=== PATIENT | male | born 1970 ===

== ENCOUNTER 2016-10-26 13:00 | Emergency (ER) | payer OTHER ==
[2016-10-26 15:46] LABS: Basophils % (Auto) 0.5 % (0.0-1.8); Eosinophils % (Auto) 0.3 % (0.0-4.3); Hematocrit 45.5 % (35.5-45.6); Mean Corpuscular HGB Conc 33 % (32-34); Mean Corpuscular Hemoglobin 29 pg (28-32); Mean Corpuscular Volume 88 fl (84-94); Platelet Count 235 K/mm3 (140-440); Red Blood Count 5.18 M/mm3 (3.65-5.03); Red Cell Distribution Width 14.1 % (13.2-15.2); White Blood Count 9.4 K/mm3 (4.5-11.0)
--- NOTE | 2016-10-26 15:46 | Emergency Department Report ---
Entered by NYA LEWIS, acting as scribe for MAY TEAGUE PRESS PULLER. Stated Complaint: PSYCH EVAL Time Seen by Provider: 10/26/16 15:02 - HPI History of Present Illness: 46 y/o male, PMHx of SI, depression and glaucoma, c/o SI with no plan occurring today. Associated substance abuse but denies weight loss. Patient states he recently broke up with his girlfriend. - ROS Review of Systems: +SI, but no plan +substance abuse- pt reports using cocaine and marijuana x 3 days - Exam Vital Signs: Vital Signs 10/26/16 15:06 Temperature 98.2 F Pulse Rate 74 Respiratory 17 Rate Blood Pressure 140/89 O2 Sat by Pulse 100 Oximetry Physical Exam: GENERAL: The patient is a well-developed, well-nourished, in no apparent distress. Patient is alert and oriented x3. Psych: flat affect MSE screening note: Focused history and physical exam performed. Due to findings the following was ordered: labs ED Disposition for MSE Condition: Stable This documentation as recorded by the scribe,NYA LEWIS,accurately reflects the service I personally performed and the decisions made by me,MAY TEAGUE, PRESS PULLER.
[2016-10-26 16:08] LABS: Alanine Aminotransferase 49 units/L (7-56); Albumin 4.4 g/dL (3.9-5); Albumin/Globulin Ratio 1.6 %; Alkaline Phosphatase 58 units/L (35-129); Anion Gap 18 mmol/L; BUN/Creatinine Ratio 19.09; Blood Urea Nitrogen 21 mg/dL (9-20); Calcium 9.2 mg/dL (8.4-10.2); Carbon Dioxide 29 mmol/L (22-30); Chloride 96.5 mmol/L (98-107); Glucose 85 mg/dL (75-100); Sodium 139 mmol/L (137-145); Total Protein 7.1 g/dL (6.3-8.2)
[2016-10-26 16:17] LABS: Urine Drugs of Abuse Note Disclamer
[2016-10-26 16:29] LABS: Bilirubin,Urine NEG (Negative); Blood,Urine NEG (Negative); Ketones,Urine TR mg/dL (Negative); Leukocyte Esterase,Urine NEG (Negative); Mucus,Urine 3+ /HPF; Nitrite,Urine NEG (Negative); Protein,Urine <15 mg/dL mg/dL (Negative); WBC,Urine < 1.0 /HPF (0.0-6.0)
--- NOTE | 2016-10-26 17:21 | Emergency Department Report ---
ED Psych HPI - General Chief Complaint: Psych Stated Complaint: PSYCH EVAL Time Seen by Provider: 10/26/16 15:02 Source: patient, EMS (ems notes not available at time of chart dictation), RN notes reviewed Mode of arrival: Ambulatory Limitations: No Limitations - History of Present Illness Initial Comments: This is a 46-year-old male. He is previously unknown to me. The patient has a past medical history of bipolar and schizophrenia. He is brought to the hospital by EMS for psychiatric evaluation. The patient has apparently relapsed on marijuana and cocaine, and is hearing voices and feeling suicidal. He is not homicidal, he does not have access to guns or firearms, and he has not tried to overdose. The patient is unable to describe exacerbating or relieving factors. The patient indicates no headache, neck pain, chest pain, abdominal pain, shortness of breath, and he denies irritative and obstructive urinary symptoms. MD Complaint: suicidal ideation, feels depressed -: Gradual Associated Psychiatric Symptoms: suicidal ideation, auditory hallucinations History of same: Yes Quality: constant Improves With: none Worsens With: none Context: recent drug abuse Associated Symptoms: denies: confusion, headache, shortness of breath, nausea, vomiting If Self Harm: admits thoughts of - Related Data Home Medications Medication Instructions Recorded Confirmed Last Taken Unobtainable 10/26/16 10/26/16 Unknown Allergies Allergy/AdvReac Type Severity Reaction Status Date / Time No Known Allergies Allergy Unverified 10/26/16 15:06 ED Review of Systems ROS: Stated complaint: PSYCH EVAL Other details as noted in HPI Constitutional: denies: fever, malaise Eyes: denies: vision change ENT: denies: epistaxis Respiratory: denies: cough Cardiovascular: denies: chest pain Gastrointestinal: denies: abdominal pain Genitourinary: as per HPI Musculoskeletal: as per HPI Skin: as per HPI Neurological: as per HPI Psychiatric: suicidal thoughts ED Past Medical Hx - Past Medical History Hx Psychiatric Treatment: Yes (BIPOLAR / SCHIZOPHRENIA) Additional medical history: GLAUCOMA - Surgical History Additional Surgical History: HEAD INJURY / SURGERY - Social History Smoking Status: Current Every Day Smoker Substance Use Type: Alcohol, Cocaine, Marijuana - Medications Home Medications: Home Medications Medication Instructions Recorded Confirmed Last Taken Type Unobtainable 10/26/16 10/26/16 Unknown History ED Physical Exam - General Limitations: No Limitations General appearance: alert, in no apparent distress - Head Head exam: Present: atraumatic, normocephalic - Eye Eye exam: Present: normal appearance, PERRL, EOMI. Absent: nystagmus - ENT ENT exam: Present: normal exam, normal orophraynx, mucous membranes moist, normal external ear exam - Neck Neck exam: Present: normal inspection, full ROM. Absent: tenderness, meningismus - Respiratory Respiratory exam: Present: normal lung sounds bilaterally. Absent: respiratory distress, wheezes, rales, rhonchi, stridor, chest wall tenderness, accessory muscle use, decreased breath sounds, prolonged expiratory - Cardiovascular Cardiovascular Exam: Present: regular rate, normal rhythm, normal heart sounds. Absent: bradycardia, tachycardia, irregular rhythm, systolic murmur, diastolic murmur, rubs, gallop - GI/Abdominal GI/Abdominal exam: Present: soft, normal bowel sounds. Absent: distended, tenderness, guarding, rebound, rigid, pulsatile mass - Rectal Rectal exam: Present: deferred - Extremities Exam Extremities exam: Present: normal inspection, full ROM, normal capillary refill. Absent: tenderness, pedal edema, joint swelling, calf tenderness - Back Exam Back exam: Present: normal inspection, full ROM. Absent: tenderness, CVA tenderness (R), CVA tenderness (L), muscle spasm, paraspinal tenderness, vertebral tenderness - Neurological Exam Neurological exam: Present: alert, oriented X3, normal gait, other (Extraocular movements intact. Tongue midline. No facial droop. Facial sensation intact to light touch in the V1, V2, V3 distribution bilaterally. 5 and 5 strength in 4 extremities.. Sensation is intact to light touch in 4 extremities.). Absent : motor sensory deficit - Psychiatric Psychiatric exam: Present: normal affect, normal mood - Skin Skin exam: Present: warm, dry, intact, normal color. Absent: rash ED Course Vital Signs 10/26/16 10/26/16 10/26/16 15:06 18:26 23:10 Temperature 98.2 F Pulse Rate 74 76 Respiratory 17 16 18 Rate Blood Pressure 140/89 Blood Pressure 140/88 [Right] O2 Sat by Pulse 100 100 99 Oximetry - Reevaluation(s) Reevaluation #1: 10/26/16 17:52 Differential diagnosis: Mood disorder, polysubstance abuse, medical clearance for psychiatric placement Assessment and plan: 46-year-old male who is suicidal with hallucinations, unremarkable physical examination, unremarkable laboratory studies, normal vital signs, has a GCS of 15, with an NIH score of 0. He is not able to give me a list of his long-term psychiatric medications. He is placed on a 1013. At this point in time, there does not appear to be any immediate medical contraindication to psychiatric admission/evaluation and consultation. The crisis team has been informed. ED Medical Decision Making - Lab Data Result diagrams: 10/26/16 15:15 10/26/16 15:15 Vital Signs 10/26/16 15:06 Temperature 98.2 F Pulse Rate 74 Respiratory 17 Rate Blood Pressure 140/89 O2 Sat by Pulse 100 Oximetry Labs 10/26/16 10/26/16 10/26/16 15:15 15:15 15:15 WBC 9.4 RBC 5.18 H Hgb 15.0 Hct 45.5 MCV 88 MCH 29 MCHC 33 RDW 14.1 Plt Count 235 Lymph % (Auto) 32.9 [place] % (Auto) 9.8 H Eos % (Auto) 0.3 Baso % (Auto) 0.5 Lymph # 3.1 Hayes # 0.9 H Eos # 0.0 Baso # 0.0 Seg Neutrophils % 56.5 Seg Neutrophils # 5.3 Sodium 139 Potassium 4.0 Chloride 96.5 L Carbon Dioxide 29 Anion Gap 18 BUN 21 H Creatinine 1.1 Estimated GFR > 60 BUN/Creatinine Ratio 19.09 Glucose 85 Calcium 9.2 Total Bilirubin 0.50 AST 93 H ALT 49 Alkaline Phosphatase 58 Total Protein 7.1 Albumin 4.4 Albumin/Globulin Ratio 1.6 Urine Color Urine Turbidity Urine pH Ur Specific [place] Urine Protein Urine Glucose (UA) Urine Ketones Urine Blood Urine Nitrite Urine Bilirubin Urine Urobilinogen Ur Leukocyte Esterase Urine WBC (Auto) Urine RBC (Auto) Urine Mucus Salicylates < 0.3 L Urine Opiates Screen Urine Methadone Screen Acetaminophen Ur Barbiturates Screen Ur Phencyclidine Scrn Ur Amphetamines Screen U Benzodiazepines Scrn Urine Cocaine Screen U Marijuana (THC) Screen Drugs of Abuse Note Plasma/Serum Alcohol 10/26/16 10/26/16 10/26/16 15:15 15:15 16:12 WBC RBC Hgb Hct MCV MCH MCHC RDW Plt Count Lymph % (Auto) [place] % (Auto) Eos % (Auto) Baso % (Auto) Lymph # [place] # Eos # Baso # Seg Neutrophils % Seg Neutrophils # Sodium Potassium Chloride Carbon Dioxide Anion Gap BUN Creatinine Estimated GFR BUN/Creatinine Ratio Glucose Calcium Total Bilirubin AST ALT Alkaline Phosphatase Total Protein Albumin Albumin/Globulin Ratio Urine Color Yellow Urine Turbidity Clear Urine pH 5.0 Ur Specific [place] 1.029 Urine Protein <15 mg/dl Urine Glucose (UA) Neg Urine Ketones Tr Urine Blood Neg Urine Nitrite Neg Urine Bilirubin Neg Urine Urobilinogen 4.0 Ur Leukocyte Esterase Neg Urine WBC (Auto) < 1.0 Urine RBC (Auto) 5.0 Urine Mucus 3+ Salicylates Urine Opiates Screen Urine Methadone Screen Acetaminophen < 15.0 Ur Barbiturates Screen Ur Phencyclidine Scrn Ur Amphetamines Screen U Benzodiazepines Scrn Urine Cocaine Screen U Marijuana (THC) Screen Drugs of Abuse Note Plasma/Serum Alcohol < 0.01 10/26/16 16:12 WBC RBC Hgb Hct MCV MCH MCHC RDW Plt Count Lymph % (Auto) [place] % (Auto) Eos % (Auto) Baso % (Auto) Lymph # [place] # Eos # Baso # Seg Neutrophils % Seg Neutrophils # Sodium Potassium Chloride Carbon Dioxide Anion Gap BUN Creatinine Estimated GFR BUN/Creatinine Ratio Glucose Calcium Total Bilirubin AST ALT Alkaline Phosphatase Total Protein Albumin Albumin/Globulin Ratio Urine Color Urine Turbidity Urine pH Ur Specific [place] Urine Protein Urine Glucose (UA) Urine Ketones Urine Blood Urine Nitrite Urine Bilirubin Urine Urobilinogen Ur Leukocyte Esterase Urine WBC (Auto) Urine RBC (Auto) Urine Mucus Salicylates Urine Opiates Screen Presumptive negative Urine Methadone Screen Presumptive negative Acetaminophen Ur Barbiturates Screen Presumptive negative Ur Phencyclidine Scrn Presumptive negative Ur Amphetamines Screen Presumptive negative U Benzodiazepines Scrn Presumptive negative Urine Cocaine Screen Presumptive positive U Marijuana (THC) Screen Presumptive positive Drugs of Abuse Note Disclamer Plasma/Serum Alcohol Critical care attestation.: If time is entered above; I have spent that time in minutes in the direct care of this critically ill patient, excluding procedure time. ED Disposition Clinical Impression: Mood disorder, Polysubstance abuse Disposition: [id number] PSY HOSP/PSY UNIT Is pt being admited?: No Does the pt Need Aspirin: No Condition: Stable Referrals: PRIMARY CARE, [Primary Care Provider] - 3-5 Days
[2016-10-26] MEDS ORDERED: ATIVAN IM PRN (17:54)
--- NOTE | 2016-10-27 14:46 | Consultation ---
History of Present Illness - Reason for Consult Consult date: 10/27/16 Reason for consult: psychiatric evaluation - Chief Complaint Chief complaint: "I'm trying to get back into [facility]" This is a 46-year-old black male. The patient has a past medical history of bipolar and schizophrenia. He is brought to the hospital by EMS for psychiatric evaluation. The patient reports he relapsed on marijuana and cocaine, and is hearing voices and feeling suicidal. He is not homicidal, he does not have access to guns or firearms, and he has not tried to overdose. He reports not sleeping for days, feelings of worthlessness, decreased appetite, mood swings, SI and AH. - Past Medical History per the record and verification with patient Hx Psychiatric Treatment: Yes (BIPOLAR / SCHIZOPHRENIA) Additional medical history: GLAUCOMA - Surgical History Additional Surgical History: HEAD INJURY / SURGERY age 6 - Social History Smoking Status: Current Every Day Smoker Substance Use Type: Alcohol, Cocaine, Marijuana daily alcohol use, last drank 10/27/16 am. No current withdrawal symptoms. Using "lots" of cocaine daily Staying on the streets "in transition" Medications and Allergies Allergies Allergy/AdvReac Type Severity Reaction Status Date / Time No Known Allergies Allergy Unverified 10/26/16 15:06 Home Medications Medication Instructions Recorded Confirmed Last Taken Type Unobtainable 10/26/16 10/26/16 Unknown History Active Meds: Active Medications Lorazepam (Ativan) 2 mg IM Q4HR PRN PRN Reason: Agitation Mental Status Exam - Vital signs Last Vital Signs Temp 97.7 F 10/27/16 11:14 Pulse 72 10/27/16 11:14 Resp 20 10/27/16 11:22 BP 143/89 10/27/16 11:14 Pulse Ox 97 10/27/16 11:14 - Exam Narrative exam: SI, plan to OD Orientation: time, place, person Affect: depressed Mood: congruent with affect Thought content: other (SI, no HI) Thought Process: Intact Perceptions: auditory (negative, non commanding voices) Speech: normal rate and pattern Concentration: focused Motor activity: normal Level of consciousness: alert Memory: Intact Sleep Symptoms: Difficulty Falling Asleep Appetite: decreased Interaction: cooperative Results Result Diagrams: 10/26/16 15:15 10/26/16 15:15 Abnormal lab results 10/26/16 10/26/16 10/26/16 Range/Units 15:15 15:15 15:15 RBC 5.18 H (3.65-5.03) M/mm3 [place] % (Auto) 9.8 H (0.0-7.3) % [place] # 0.9 H (0.0-0.8) K/mm3 Chloride 96.5 L (98-107) mmol/L BUN 21 H (9-20) mg/dL AST 93 H (5-40) units/L Salicylates < 0.3 L (2.8-20.0) mg/dL All other labs normal. Assessment and Plan Assessment and plan: Impression: alcohol use disorder, no current withdrawal symptoms cocaine use disorder reported history of schizoaffective d/o bipolar type Recommendation: 1013 and transfer to inpatient psychiatric facility for substance use disorders and SI/safety concerns/AH Start Risperdal 1mg bid. Previously tolerate higher doses and is aware of metabolic side effects Previously on depakote for bipolar- held. AST 93. Monitor for s/s of alcohol withdrawal-has ativan for agitation ordered by ER .
[2016-10-27] MEDS ORDERED: RisperDAL PO SCH (22:00)
[2016-10-28 08:11] VITALS: BP 123/74
--- NOTE | 2016-10-28 09:53 | Progress Note ---
Subjective - Reason for Consult Consult date: 10/28/16 Reason for consult: Psychiatry Follow-up - Chief Complaint Chief complaint: "I need help" This is a 46-year-old black male. The patient has a past medical history of bipolar and schizophrenia. He is brought to the hospital by EMS for psychiatric evaluation. Today patient is calm and cooperative during assessment. He stated not taken his psy medications for 3 weeks and started self medicating with recreational drugs and alcohol (etoh). He stated that he wanted to end it all days ago (wanted to ). He stated that he may still be suicidal and does not have a plan. He stated that the voices has ceased since he got sleep. He denies HI's and AVH's, but feel sad, hopeless, and worthless. He denies any side effects of his psy medications. Mental Status Exam - Vital signs Last Vital Signs Temp 98.3 F 10/27/16 20:45 Pulse 84 10/28/16 07:30 Resp 16 10/28/16 07:30 BP 123/74 10/28/16 07:30 Pulse Ox 98 10/28/16 07:30 - Exam Narrative exam: MSE: Appearance: calm, cooperative Behavior: good eye contact Speech: regular rate and tone Mood: "okay" Affect: flat Thought Process: linear Thought Content: denies SI's(intermittently)/HI's and AVH's Motor Activity: ambulatory Cognition: A/Ox3 Insight: fair Judgment: limited Assessment and Plan Impression: Alcohol Use DO, Substance Use DO (Cocaine), reported history of Schizoaffective DO Bipolar Type. Today patient is calm and cooperative during assessment. He stated not taken his psy medications for 3 weeks and started self medicating with recreational drugs and alcohol (etoh). He stated that he wanted to end it all days ago (wanted to ). Patient stated that he wants helps for his substance abuse. No acute withdrawals noted. Recommendation/Plan: Continue 1013 with placement to [facility]. Continue Risperdal 1mg bid. Previously tolerate higher doses and is aware of metabolic side effects. Previously on depakote for bipolar- held. AST 93. Monitor for s/s of alcohol withdrawal-has ativan for agitation ordered by ER .
== END 2016-10-28 08:15 ==
LOC: ED 13:00 → EEVIPCON 13:00 → ED 10-28 08:15
DX: F31.9 Bipolar disorder, unspecified (principal); F20.9 Schizophrenia, unspecified; F17.200 Nicotine dependence, unspecified, uncomplicated; F12.10 Cannabis abuse, uncomplicated; F14.10 Cocaine abuse, uncomplicated; F10.10 Alcohol abuse, uncomplicated
CPT/HCPCS: 36415; 80053; 80307; 81001; 85025; 99285; G0480; 80320